=== PATIENT | male | born 1950 | race Caucasian/White ===

== ENCOUNTER 2017-12-05 06:39 | Emergency (ER) | payer MEDICARE ==
[2017-12-05] MEDS: ASPIRIN 325 MG TAB PO (07:30)
[2017-12-05] MEDS: NITROGLYCERIN (SL) 0.4 MG TAB SL ×2 (07:30→07:59)
[2017-12-05 07:40] LABS: ADD MAN DIFF? NO
[2017-12-05 07:44] LABS: BASOPHILS % 0.3 % (0.0-2.0); EOSINOPHILS # 0.3 10^3/ul (0.0-0.5); EOSINOPHILS % 5.1 % (0.0-7.0); HEMOGLOBIN 12.3 g/dl (14.0-18.0); LYMPHOCYTES % 34.2 % (15.0-51.0); MEAN CORPUSCULAR HEMOGLOBIN 26.3 pg (29.0-33.0); MEAN CORPUSCULAR HGB CONC 32.4 g/dl (32.0-37.0); MEAN CORPUSCULAR VOLUME 81.4 fl (82.0-101.0); MEAN PLATELET VOLUME 10.9 fl (7.4-10.4); MONOCYTE # 0.7 10^3/ul (0.3-0.9); MONOCYTES % 11.5 % (0.0-11.0); NEUTROPHIL # 2.9 10^3/ul (1.6-7.5); NEUTROPHILS % 48.7 % (39.0-77.0); PLATELET COUNT 192 10^3/UL (140-415); RED BLOOD COUNT 4.67 10^6/ul (4.70-6.10); RED CELL DISTRIBUTION WIDTH 17.1 % (11.5-14.5)
[2017-12-05 07:44] LABS: WHITE BLOOD COUNT 5.9 10^3/ul (4.8-10.8)
[2017-12-05] MEDS: SOD CHLORIDE 0.9% 1,000 ML IV (07:46)
[2017-12-05 07:50] LABS: ANION GAP 8 (8-16); BLOOD UREA NITROGEN 19 mg/dl (7-20); CALCIUM 8.5 mg/dl (8.4-10.2); CARBON DIOXIDE 27 mmol/L (21-31); CHLORIDE 110 mmol/L (97-110); CREATININE 0.93 mg/dl (0.61-1.24); GLUCOSE 95 mg/dl (70-220); POTASSIUM 4.2 mmol/L (3.5-5.1); SODIUM 141 mmol/L (135-144)
[2017-12-05 08:01] LABS: TROPONIN-I < 0.010 ng/ml (0.000-0.120)
[2017-12-05] MEDS: IOHEXOL 100 ML (09:21)
[2017-12-05] MEDS: SOD CHLORIDE 0.9% 100 ML (09:22)
[2017-12-05] MEDS: KETOROLAC 15 MG INJ IV (10:28)
[2017-12-05 11:07] LABS: TROPONIN-I < 0.010 ng/ml (0.000-0.120)
== END 2017-12-05 11:59 | disposition left against medical advice (07) ==
LOC: E/R 11:59
DX: R07.9 Chest pain, unspecified (principal); D86.9 Sarcoidosis, unspecified; I10 Essential (primary) hypertension; I25.10 Atherosclerotic heart disease of native coronary artery without angina pectoris; Z79.01 Long term (current) use of anticoagulants; Z79.82 Long term (current) use of aspirin; Z85.858 Personal history of malignant neoplasm of other endocrine glands; Z96.651 Presence of right artificial knee joint; Z98.61 Coronary angioplasty status
CPT/HCPCS: 36415; 71045; 71275; 80048; 84484; 85025; 93005; 99285-25